=== PATIENT | male | born 1955 | race Hispanic/Latino ===

== ENCOUNTER → 2018-12-07 | Outpatient (CLI) | payer MEDICARE ==
[~2018-12-07] MED LIST: ACET1TAB12 PO; CARV25TA PO; GABA-531 PO; HYDR25TA PO; IBUP-2077 PO; IOHEXOL-350 75 ML VIAL IV ONE; LISI10TA7 PO; NAPR-1023 PO
== END | disposition home or self-care (01) ==
LOC: RAH 08:44
PROVIDERS: ATTEND Internal Medicine
DX: K80.21 Calculus of gallbladder without cholecystitis with obstruction (principal); R16.2 Hepatomegaly with splenomegaly, not elsewhere classified; R18.8 Other ascites
CPT/HCPCS: 74177; Q9967

== ENCOUNTER 2019-06-25 05:29 | Day surgery (SDC) | payer MEDICARE ==
[2019-06-25] VITALS (17 sets, daily range): BP systolic 134–169; BP diastolic 72–90
[~2019-06-25] VITALS: Ht 188 cm; Wt 135.9 kg
[~2019-06-25 05:29] MED LIST changes: -IOHEXOL-350 75 ML VIAL IV ONE
[2019-06-25] MEDS ORDERED: SODIUM CHLORIDE 0.9% 1000ML 1,000 ML IV ONE (07:12)
[2019-06-25] MEDS ORDERED: LIDOCAINE PF 2% 5ML ABBOJECT ONE (07:24)
[2019-06-25] MEDS ORDERED: ROCURONIUM 10MG/1ML SYR 10 MG/ML ML ONE (07:25)
[2019-06-25] MEDS ORDERED: PROPOFOL 10 MG/ML 20ML VIAL IV ONE (07:25)
[2019-06-25] MEDS ORDERED: MIDAZOLAM HCL 1 MG/ML 2ML VIAL ONE (07:25)
[2019-06-25] MEDS ORDERED: FENTANYL CITRATE PF 50 MCG/1 ML 2ML VIAL ONE (07:25)
--- NOTE | 2019-06-25 07:25 | NUR ---
POTENTIAL FOR INFECTION: CLIPPED LEFT FOREARM PER DOUG DONG.
[2019-06-25] MEDS ORDERED: SUCCINYLCHOLINE CHLORIDE 20 MG/ML 10 ML VIAL ONE (07:26)
[2019-06-25] MEDS ORDERED: ALBUMIN (HUMAN) 25% 100 ML IV ONE (07:28)
[2019-06-25] MEDS ORDERED: ONDANSETRON HCL 4 MG/2 ML VIAL ONE (07:30)
[2019-06-25 07:32] LABS: HEMATOCRIT 32.5 % (42-54); MEAN CORPUSCULAR HEMOGLOBIN 28.6 pg (27.0-33.0); MEAN CORPUSCULAR HGB CONC 31.4 g/dL (32.0-36.0); RED BLOOD CELL COUNT(AUTO) 3.57 MIL/uL (4.50-6.20); RED CELL DISTRIBUTION WIDTH 16.1 % (11.0-15.5); WHITE BLOOD COUNT (AUTO) 8.6 K/uL (4.8-10.8)
[2019-06-25] MEDS ORDERED: PHENYLEPHRINE HCL 10 MG/ML 1ML VIAL IV ONE (07:43)
[2019-06-25] MEDS ORDERED: EPHEDRINE SULFATE 50 MG/ML AMPULE ONE (07:43)
[2019-06-25] MEDS: CEFUROXIME SODIUM 1.5 GM VIAL ONE ×2 (07:44→08:05)
[2019-06-25 07:45] LABS: HEMOGLOBIN A1C 4.5 % (4.0-6.0)
[2019-06-25 07:47] LABS: INR 0.97 (0.85-1.15); PARTIAL THROMBOPLASTIN TIME 27.4 SEC (26.3-35.5); PROTHROMBIN TIME 10.5 SEC (9.6-11.6)
[2019-06-25 07:49] LABS: ALBUMIN 3.6 g/dL (3.5-5.0); BILIRUBIN,TOTAL 0.3 mg/dL (0.2-1.0); POTASSIUM 3.6 mmol/L (3.5-5.1); TOTAL PROTEIN, SERUM 7.2 g/dL (6.0-8.3)
[2019-06-25 07:54] LABS: CREATININE 8.2 mg/dL (0.5-1.5)
[2019-06-25] MEDS ORDERED: CEFAZOLIN SODIUM 1 GM VIAL ONE (08:23)
[2019-06-25] MEDS ORDERED: OCTYL 2-CYANOACRYLATE 1 EACH TP ONE (08:23)
[2019-06-25] MEDS ORDERED: FENTANYL CITRATE PF 50 MCG/1 ML 5ML AMP IV ONE (08:31)
--- NOTE | 2019-06-25 10:40 | NUR ---
ASSESSMENT RECEIVED PT FROM PACU STAFF JEAN-CLAUDE MARIE. PT [id number]. DENIES ANY PAIN AT THIS TIME. DRSG TO LEFT FOREARM DRY AND INTACT. NO BLEEDING, REDNESS NOTED TO SITE.
--- NOTE | 2019-06-25 11:10 | NUR ---
DISCHARGE ORAL AND WRITTEN DISCHARGE INSTRUCTIONS GIVEN TO PTS DAUGHTER ALONG WITH PRESCRIPTION. INSTRUCTED ON IMPORTANCE OF KEEPING DRSG DRY AND INTACT UNTIL POST OP APPT.
== END 2019-06-25 11:12 | disposition home or self-care (01) ==
LOC: DAH 05:29
PROVIDERS: ATTEND Thoracic Surgery (Cardiothoracic Vascular Surgery)
DX: I12.0 Hypertensive chronic kidney disease with stage 5 chronic kidney disease or end stage renal disease (principal); N18.6 End stage renal disease; I49.1 Atrial premature depolarization; I25.10 Atherosclerotic heart disease of native coronary artery without angina pectoris; Z99.2 Dependence on renal dialysis; E66.01 Morbid (severe) obesity due to excess calories; Z95.1 Presence of aortocoronary bypass graft; Z79.82 Long term (current) use of aspirin; Z79.899 Other long term (current) drug therapy
CPT/HCPCS: 36415; 36821; 71045; 80053; 83036; 85027; 85610; 85730; 93005; A4215; A4221; A4222; A4223; A4649; A4663; A4930; C1713 ×2; G0168; J0330; J0690; J0697; J1644; J2001; J2250; J2370; J2405; J2704; J3010 ×2; J3490; J7030 ×2; J7040; P9047